=== PATIENT | male | born 1960 | race Caucasian/White ===

== ENCOUNTER 2019-07-24 16:19 | Inpatient (IN) | payer MEDICARE ==
[~2019-07-24] VITALS: Ht 167.6 cm; Wt 93.0 kg
--- NOTE | 2019-07-25 11:55 | NUR ---
RN NOTE- ON FACE TO FACE ADMISSION, PT ADMITTED AT 1155 TO GPS. PT CAME VIA AMBULANCE, ALERT ORIENTED TO PERSON PLACE TIME AND PURPOSE. VS STABLE. PT IS AMBULATORY, CALM AND DIRECTABLE. PT IS SOMEWHAT FLAT AND DEPRESSED. CURRENTLY DENIES SI AT THIS MOMENT. STATES HE'S "TIRED AND NERVOUS". PERSONAL BELONGINGS ITEMIZED AND STOWED AWAY, MD NOTIFIED OF ADMISSION, ORDERS RECEIVED AND COMPLIED WITH. SKIN ASSESSMENT COMPLETED, PHOTOGRAPHS TAKEN AND PLACED IN CHART, ID WRISTBAND PUT ON PT WRIST. PROVIDING CLEAN, CALM THERAPUETIC ENVIRONMENT. MONITORING.
[2019-07-25] MEDS ORDERED: ACETAMINOPHEN 325 MG TABLET PO PRN (13:00)
[2019-07-25] MEDS ORDERED: MAGNESIUM HYDROXIDE 30 ML UDC PO PRN (13:00)
[2019-07-25] MEDS ORDERED: BLOOD SUGAR DIAGNOSTIC 1 EACH STRIP IN ONE (13:00)
[2019-07-25] MEDS ORDERED: MAG HYDROX/AL HYDROX/SIMETH 30 ML UDC PO PRN (13:00)
[2019-07-25 13:26] VITALS: BP 122/86
[2019-07-25] MEDS ORDERED: ESCI20TA PO (13:50)
[2019-07-25] MEDS ORDERED: [UNRECOGNIZED DRUG - CODE] IM (13:50)
[2019-07-25] MEDS ORDERED: AMLO5TAB4 PO (13:50)
[2019-07-25] MEDS ORDERED: FOLI5VIA2 PO (13:50)
[2019-07-25] MEDS ORDERED: LORA-259 PO (14:07)
[2019-07-25] MEDS ORDERED: ARIP2TAB3 PO (14:08)
[2019-07-25] MEDS: LORAZEPAM 0.5 MG TABLET PO PRN ×2 (14:12→19:42)
[2019-07-25 16:00] VITALS: BP 105/63
--- NOTE | 2019-07-25 19:43 | NUR ---
para professional notes pt requested his Ativan for his anxiety. educate him the possible side effect and pt understood well. kept him warm and comfortable at all times. will continue monitoring.
[2019-07-25 20:21] VITALS: BP 126/72
--- NOTE | 2019-07-25 21:40 | NUR ---
brim pouncer notes pt in the dining room still watching tv at this time. snacks served. calmed and no suicidal ideation noted. will continue monitoring.
[2019-07-25] MEDS: TEMAZEPAM 7.5 MG CAPSULE PO PRN (22:27)
[2019-07-26] MEDS: LORAZEPAM 0.5 MG TABLET PO PRN ×4 (03:11→21:24)
[2019-07-26 07:16] LABS: ALBUMIN 2.8 g/dL (3.4-5.0); BILIRUBIN,TOTAL 0.6 mg/dL (0.2-1.0); CALCIUM, SERUM 8.7 mg/dL (8.5-10.1); CREATININE 0.7 mg/dL (0.6-1.3); POTASSIUM 3.8 mmol/L (3.5-5.1); TOTAL PROTEIN, SERUM 6.3 g/dL (6.4-8.2)
[2019-07-26 07:43] LABS: CHOLESTEROL 172 mg/dL (<200); HDL CHOLESTEROL 43 mg/dL (40-60); LDL 112 mg/dL (0-99); TRIGLYCERIDES 62 mg/dL (30-150)
[2019-07-26 08:00] VITALS: BP 107/66
[2019-07-26] MEDS ORDERED: ARIPIPRAZOLE 2 MG TABLET PO SCH (09:00)
[2019-07-26] MEDS ORDERED: ESCITALOPRAM OXALATE (10 MG) 10 MG TABLET PO SCH (09:00)
--- NOTE | 2019-07-26 11:55 | NUR ---
PATIENT C/O ANXIETY. PRN ATIVAN GIVEN.
--- NOTE | 2019-07-26 12:03 | NUR ---
CONTACTED DR ÁLVAREZ REGARDING PATIENT'S SKIN CONDITION. AWAITING CALL BACK. Addendum: 07/26/19 at 1311 by EDIE JAMA RN SAW PATIENT WITH ORDERS FOR EUCERIN FOR DRY SKIN. Addendum: 07/26/19 at 1339 by EIDE JAMA RN AWARE OF PATIENT'S LAB VALUES WITH NEW ORDERS FOR US LIVER
[2019-07-26] MEDS ORDERED: MINERAL OIL/PETROLATUM,WHITE 120 GM JAR TP PRN (13:30)
[2019-07-26 13:33] LABS: BASOPHILS % (AUTO) 0.3 % (0.0-2.0); EOSINOPHILS % (AUTO) 3.6 % (0.0-6.0); HEMATOCRIT 44 % (39-51); HEMOGLOBIN 14.4 g/dL (13.5-17.5); LYMPHOCYTES % (AUTO) 21.8 % (20.0-44.0); MEAN CORPUSCULAR HGB CONC 33 g/dl (31.0-36.0); MEAN CORPUSCULAR VOLUME 98 fL (80-96); MONOCYTES # (AUTO) 0.5 /CMM (0.1-1.30); MONOCYTES % (AUTO) 11.4 % (2.0-12.0); NEUTROPHILS % (AUTO) 62.9 % (43.0-81.0); PLATELET COUNT (AUTO) 174 /CMM (150-450); RED BLOOD CELL COUNT(AUTO) 4.49 MIL/uL (4.5-6.0); WHITE BLOOD COUNT (AUTO) 4.8 K/uL (4.3-11.0)
--- NOTE | 2019-07-26 14:56 | NUR ---
Family Contact: SW called the pts sister, Maddison ([phone]), and left a voicemail stating that the SW would like to discuss the pts initial discharge plan and treatment plan.
--- NOTE | 2019-07-26 15:09 | NUR ---
SS Group Note 07/26/19: Goal: Patient will attend group held today from 2-2:30pm in the activities room and participate and/or actively listen to peers and be respectful. Intervention: SW facilitated group session with patients regarding what they would like to see change as a result of their stay here. SW explored possible solutions and barriers for being med. compliant. SW used reflective listening, validated and normalized the patients struggle to remain sober. SW discussed individuals use substances or ETOH to cope with mental health symptoms. SW will provide Substance/ETOH resources for pt. upon discharge. Response: Patient was agreeable to participating in group session. The patient expressed that he wants to be more compliant with medication as a result of his stay here and to remain sober. Per patient, he plans to be more compliant by making a schedule for himself and participating in a sobriety program. Patient remained calm and cooperative throughout session. The patient was respectful towards his peers as they shared. Plan: Patient will be invited to attend next social worker masters group session held.
[2019-07-26 16:00] VITALS: BP 121/83
--- NOTE | 2019-07-26 16:24 | NUR ---
Initial Discharge Plan: Pt currently resides at [address] [place] [address]; ([phone]), with his father. Per pts sister, Maddison ([phone]), he may need placement. SW will work with the pt and the MD regarding appropriate discharge planning. SW will form a safe and proper discharge.
--- NOTE | 2019-07-26 16:25 | NUR ---
Family Contact: Pts sister, Maddison ([phone]), called the SW and stated that the pt may need placement because he has been living on the floor of his dads apartment and that he has been drinking a lot. SW stated that she will keep her updated on the pts discharge plan.
--- NOTE | 2019-07-26 16:29 | NUR ---
PATIENT C/O ANXIETY. PRN ATIVAN GIVEN PO
[2019-07-26] MEDS ORDERED: TRAZODONE 50 MG TABLET PO ONE (20:30)
[2019-07-26 20:56] VITALS: BP 124/59
[2019-07-26] MEDS ORDERED: risperiDONE 1 MG TABLET PO SCH (21:00)
[2019-07-26] MEDS ORDERED: DIVALPROEX SODIUM 250 MG TABLET.DR PO SCH (21:00)
[2019-07-26] MEDS: risperiDONE 1 MG TABLET PO SCH (21:19)
--- NOTE | 2019-07-26 21:50 | NUR ---
GPS-RN SPOKE WITH DR. SPANN REGARDING CLARIFICATION OF TRAZADONE ORDER. DR. SPANN ORDERED TO START TRAZADONE 100MG PO TOMORROW HS (07/27/19) AND GIVE TRAZADONE 50MG PO X ONE NOW.
[2019-07-26] MEDS ORDERED: TRAZODONE 50 MG TABLET PO SCH (22:00)
[2019-07-26] MEDS: TRAZODONE 50 MG TABLET PO SCH (22:00)
[2019-07-26] MEDS: TEMAZEPAM 7.5 MG CAPSULE PO PRN (23:11)
[2019-07-27] MEDS: LORAZEPAM 0.5 MG TABLET PO PRN ×3 (03:59→19:31)
--- NOTE | 2019-07-27 03:59 | NUR ---
gps rn notes: alex walked up to the nursing station and asked for ativan medication. ativan 1mg give orally as a prn order. will observed for efficacy of medication on patient.
[2019-07-27 08:00] VITALS: BP 100/55
[2019-07-27] MEDS: LITHIUM CARBONATE 150 MG CAPSULE PO SCH ×3 (08:34→16:26)
[2019-07-27] MEDS: risperiDONE 1 MG TABLET PO SCH ×2 (08:34→20:41)
--- NOTE | 2019-07-27 14:32 | NUR ---
Substance Abuse Intervention: SW conducted a substance abuse intervention with the pt due to the pts alcohol abuse.
[2019-07-27 16:00] VITALS: BP 101/67
[2019-07-27 20:02] VITALS: BP 128/83
[2019-07-27] MEDS: TRAZODONE 50 MG TABLET PO SCH (21:23)
[2019-07-27] MEDS: TEMAZEPAM 7.5 MG CAPSULE PO PRN (22:54)
[2019-07-28 08:00] VITALS: BP 119/74
[2019-07-28] MEDS: LITHIUM CARBONATE 150 MG CAPSULE PO SCH ×3 (08:08→16:30)
[2019-07-28] MEDS: risperiDONE 1 MG TABLET PO SCH ×2 (08:08→19:55)
[2019-07-28] MEDS: LORAZEPAM 0.5 MG TABLET PO PRN ×3 (10:16→18:59)
--- NOTE | 2019-07-28 10:17 | NUR ---
RN NOTE: PATIENT C/O FEELING ANXIOUS, ADMINISTERED PRN ATIVAN ORDERED.
--- NOTE | 2019-07-28 14:51 | NUR ---
RN NOTE: PATIENT C/O FEELING ANXIOUS, ADMINISTERED PRN ATIVAN.
[2019-07-28 16:00] VITALS: BP 121/78
--- NOTE | 2019-07-28 19:00 | NUR ---
RN NOTE: PATIENT C/O FEELING ANXIOUS. ADMINISTERED PRN ATIVAN.
[2019-07-28 20:32] VITALS: BP 125/77
[2019-07-28] MEDS: TRAZODONE 50 MG TABLET PO SCH (21:20)
[2019-07-28] MEDS: TEMAZEPAM 7.5 MG CAPSULE PO PRN (22:03)
[2019-07-29 08:00] VITALS: BP 140/77
[2019-07-29] MEDS: LITHIUM CARBONATE 150 MG CAPSULE PO SCH ×3 (08:06→16:21)
[2019-07-29] MEDS: risperiDONE 1 MG TABLET PO SCH ×2 (08:06→21:38)
[2019-07-29] MEDS: LORAZEPAM 0.5 MG TABLET PO PRN ×2 (09:34→14:12)
--- NOTE | 2019-07-29 09:35 | NUR ---
RN NOTE: PATIENT C/O FEELING ANXIOUS. ADMINISTERED PRN ATIVAN.
--- NOTE | 2019-07-29 14:13 | NUR ---
RN NOTE: PATIENT C/O FEELING ANXIOUS. ADMINISTERED PRN ATIVAN.
[2019-07-29 16:00] VITALS: BP 126/88
[2019-07-29 20:18] VITALS: BP 121/62
[2019-07-29] MEDS: TRAZODONE 50 MG TABLET PO SCH (21:37)
[2019-07-29] MEDS: TEMAZEPAM 7.5 MG CAPSULE PO PRN (23:10)
[2019-07-30 08:00] VITALS: BP 128/75
[2019-07-30] MEDS: LITHIUM CARBONATE 150 MG CAPSULE PO SCH ×3 (09:12→16:11)
[2019-07-30] MEDS: risperiDONE 1 MG TABLET PO SCH ×2 (09:12→20:57)
[2019-07-30] MEDS: LORAZEPAM 0.5 MG TABLET PO PRN ×2 (11:05→15:07)
--- NOTE | 2019-07-30 12:06 | NUR ---
Family Contact: SW called the pts sister, Maddison ([phone]), and informed her that the SW will be sending out SNF referrals for the pt because as she had mentioned the family is not ready to take the pt back due to his behaviors while he is at home. She stated that she would like to remain updated and the SW stated that she will keep her informed.
--- NOTE | 2019-07-30 12:14 | NUR ---
SNF Referral: SW faxed a referral to two senior care facilities that are listed below: [facility] with attn to Audrey to the fax number: [phone] [facility] with attn to Felice to the fax number: [phone].
--- NOTE | 2019-07-30 14:34 | NUR ---
GPS RN NOTE: PT REQUESTED THERAPY/COUNSELING. DR. SPANN NOTIFIED AND RECOMMENDED CONSULT WITH DR. HERNANDEZ. ORDER PLACED AND DR. HERNANDEZ NOTIFIED.
--- NOTE | 2019-07-30 14:40 | NUR ---
SNF Contact: Mica [phone]) from [facility] called the SW and stated that the pt is not accepted to their facility.
--- NOTE | 2019-07-30 14:42 | NUR ---
SNF Contact: Wellington ([phone]) from [facility] contacted the SW and stated that the pt is accepted to their facility.
--- NOTE | 2019-07-30 15:09 | NUR ---
gps rn note: patient c/o of anxiety. noticed picking at his nails as nervous habit. administered 1mg of ativan po prn as ordered. will continue to monitor q15 for safety and behavior
--- NOTE | 2019-07-30 15:32 | NUR ---
SS GROUP NOTE 07/30/19 Goal: Patient will attend group held today from 2-2:30pm in the activities room and participate and/or actively listen to peers and be respectful. Intervention: SW facilitated group session with patients regarding recognizing positive aspects in their life. SW explored: things, people places they adore; one thing they have worked hard to achieve; one thing thats going well right now; two subjects or pursuits youre passionate about; two people you can count on; three things they look forward to. Response: Patient was agreeable to participating in group session. The pt. presents with flat affect. The pt. shared with the group that he is thankful for his father, current sobriety, and is looking forward to getting his life in order. The pt. remained calm and cooperative throughout group and was respectful towards thei peers as they shared. Plan: Patient will be invited to attend next social work job titles group session held and be encouraged to actively participate in group.
[2019-07-30 16:00] VITALS: BP 128/85
[2019-07-30 21:07] VITALS: BP 107/60
[2019-07-30] MEDS: TRAZODONE 50 MG TABLET PO SCH (22:30)
[2019-07-31] MEDS: TEMAZEPAM 7.5 MG CAPSULE PO PRN ×2 (01:35→22:44)
--- NOTE | 2019-07-31 01:36 | NUR ---
GPS RN NOTES: PT C/O UNABLE TO GO TO SLEEP. PT STATED, "CAN I HAVE MY SLEEPING PILL?". CHECKED PT VITALS WNL BP 120/82, HEART RATE 92, RESP 18, TEMP 97.7. OFFERED RESTORIL 15MG PO PRN ORDERED. PT TOLERATED WELL. CONTINUE TO MONITOR.
[2019-07-31 01:39] VITALS: BP 120/82
[2019-07-31 07:53] VITALS: BP 109/80
[2019-07-31 08:00] VITALS: BP 115/85
[2019-07-31] MEDS: risperiDONE 1 MG TABLET PO SCH ×2 (08:03→20:20)
[2019-07-31] MEDS: LITHIUM CARBONATE 150 MG CAPSULE PO SCH ×3 (08:03→16:51)
[2019-07-31] MEDS: LORAZEPAM 0.5 MG TABLET PO PRN ×2 (09:36→18:51)
[2019-07-31 16:00] VITALS: BP 109/70
[2019-07-31 19:53] VITALS: BP 109/80
[2019-07-31 20:00] VITALS: BP 109/80
--- NOTE | 2019-07-31 20:00 | NUR ---
RN NOTES: TRANSFER PATIENT CAME TO UNIT FROM GPS, AMBULATORY. PATIENT IS ALERT, ORIENTED X 3. BREATHING EVEN AND UNLABORED. NOT IN ANY DISTRESS. PATIENT IS CALM, COOPERATIVE, PLEASANT, FLAT AFFECT, DEPRESSED MOOD, DENIES SI/HI AT THIS TIME. PATIENT HAS 1:1 SITTER AT BEDSIDE. NO COMPLAINTS OF PAIN OR ANY DISCOMFORT AT THIS TIME. WILL CONTINUE TO MONITOR Q15 MINS FOR SAFETY AND BEHAVIOR.
--- NOTE | 2019-07-31 20:00 | NUR ---
GPS RN NOTE: PATIENT AWAKE, ALERT AND ORIENTED X 3-4, CALM, COOPERATIVE, INTERACT WHEN ENGAGED, DENIES SI/HI, DENIES AH/VH, NO AGGRESSIVE BEHAVIOR NOTED, NO SOB, NO ACUTE DISTRESS, BREATHING EVEN AND UNLABORED, DENIES PAIN AND DISCOMFORT, PATIENT TRANSFERRED TO GPS OVERFLOW ROOM 315-1. REPORT GIVEN TO EVAN ZALDIVAR.
[2019-07-31] MEDS: TRAZODONE 50 MG TABLET PO SCH (21:53)
--- NOTE | 2019-08-01 06:51 | NUR ---
GPS OVERFLOW RN CLOSING NOTES PATIENT STILL RESTING IN BED, ALERT, ORIENTED X 3. BREATHING EVEN AND UNLABORED. NOT IN ANY DISTRESS. ON ROOM AIR. NO COMPLAINTS OF PAIN OR DISCOMFORT AT THIS TIME. NO ACUTE CHANGES OVERNIGHT. ALL NEEDS ATTENDED. SAFETY MEASURES IN PLACE; 1:1 SITTER AT BEDSIDE, CALL LIGHT WITHIN REACH, BED IN LOW, LOCKED POSITION. WILL ENDORSE SANTIAGO TO ONCOMING RN.
--- NOTE | 2019-08-01 07:30 | NUR ---
RN GPS NOTES PT IN BED, AWAKE, ALERT AND ORIENTED, DENIES PAIN, NOT IN DISTRESS, CALL LIGHT WITHIN REACH, NO BEHAVIOR PROBLEM NOTED AT THIS TIME, SITTER AT BEDSIDE, NEEDS ATTENDED.
[2019-08-01 08:00] VITALS: BP 124/85
[2019-08-01] MEDS: LITHIUM CARBONATE 150 MG CAPSULE PO SCH ×3 (08:31→16:23)
[2019-08-01] MEDS: risperiDONE 1 MG TABLET PO SCH ×2 (08:31→20:00)
[2019-08-01] MEDS: LORAZEPAM 0.5 MG TABLET PO PRN ×3 (08:35→21:54)
--- NOTE | 2019-08-01 13:30 | NUR ---
SNF Referral: [facility] faxed a referral to [facility] to the fax number: [phone].
--- NOTE | 2019-08-01 13:31 | NUR ---
SNF Contact: Belinda ([phone]) from [facility] called the SW and stated that the pt was accepted for Tuesday.
--- NOTE | 2019-08-01 13:35 | NUR ---
Family Contact: [employer] called the pts sister, Maddison ([phone]), and informed her that the pt will be discharged to [facility] on Tuesday and provided her with the address and the phone number.
[2019-08-01 16:00] VITALS: BP 125/75
--- NOTE | 2019-08-01 18:35 | NUR ---
RN CLOSING NOTES PT IN ROOM LAYING IN BED AT THIS TIME. PT IS FEELING FINE AND IS BEING COMPLIANT WITH THE PLAN OF CARE. NO ISSUES NOTED AT THIS TIME. PATIENT IS COOPERATIVE WITH CARE AND INTERVENTIONS.
--- NOTE | 2019-08-01 19:05 | NUR ---
GPS RN OPENING NOTES RECEIVED PATIENT IN BED WATCHING TV, ALERT, ORIENTED X 3. 1:1 SITTER AT BEDSIDE. BREATHING EVEN AND UNLABORED. NOT IN ANY DISTRESS. ON ROOM AIR. NO COMPLAINTS AT THIS TIME. SAFETY MEASURES IN PLACE; CALL LIGHT WITHIN REACH, BED IN LOW, LOCKED POSITION. WILL CONTINUE TO MONITOR ACCORDINGLY
[2019-08-01 20:00] VITALS: BP 140/82
[2019-08-01] MEDS: TRAZODONE 50 MG TABLET PO SCH (21:13)
--- NOTE | 2019-08-01 21:55 | NUR ---
RN NOTES PATIENT C/O OF FEELING ANXIOUS, REQUESTED FOR ATIVAN- GIVEN 1MG PO ORDERED.
[2019-08-01] MEDS: TEMAZEPAM 7.5 MG CAPSULE PO PRN (22:45)
--- NOTE | 2019-08-02 06:28 | NUR ---
GPS RN CLOSING NOTES PATIENT STILL SLEEPING IN BED, COMFORTABLE. BREATHING EVEN AND UNLABORED. NOT IN ANY DISTRESS. ON ROOM AIR. NO ACUTE CHANGES OVERNIGHT. ALL NEEDS ATTENDED. SAFETY MEASURES IN PLACE; 1:1 SITTER AT BEDSIDE, CALL LIGHT WITHIN REACH, BED IN LOW, LOCKED POSITION. WILL ENDORSE SANTIAGO TO ONCOMING RN.
--- NOTE | 2019-08-02 07:30 | NUR ---
RN GPS NOTES PT IN BED, SLEEPING, EASY TO AROUSE, ALERT AND ORIENTED, NO COMPLAINT AT THIS TIME, RESPIRATIONS NORMAL, CALL LIGHT WITHIN REACH, SAFETY PRECAUTIONS OBSERVED, SITTER AT BEDSIDE, KEPT WARM AND COMFORTABLE IN BED.
[2019-08-02 08:00] VITALS: BP 112/76
[2019-08-02 08:01] VITALS: BP 112/76
[2019-08-02] MEDS: LITHIUM CARBONATE 150 MG CAPSULE PO SCH ×3 (08:43→17:35)
[2019-08-02] MEDS: LORAZEPAM 0.5 MG TABLET PO PRN ×3 (11:31→20:45)
[2019-08-02] MEDS: risperiDONE 1 MG TABLET PO SCH ×2 (11:43→21:20)
--- NOTE | 2019-08-02 12:15 | NUR ---
RN GPS NOTES PT AWAKE, SITTING ON HIS CHAIR, EATING LUNCH, NO COMPLAINT OF PAIN OR ANY DISCOMFORT, COMPLIANT WITH MEDICATIONS, NEEDS ATTENDED.
[2019-08-02 16:00] VITALS: BP 133/81
--- NOTE | 2019-08-02 18:19 | NUR ---
RN MS NOTES PT IN BED, AWAKE, ALERT AND ORIENTED, WATCHING TV, NO BEHAVIOR PROBLEM NOTED, COMPLIANT WITH MEDS AND INTERVENTION, TOLERATES CURRENT DIET, PM MEDS GIVEN ORDERED, ALL NEEDS ATTENDED.
--- NOTE | 2019-08-02 19:20 | NUR ---
CHANGE OF SHIFT REPORT Patient in bed, awake. Appears calm, on his head phone listening to loud music. Denies pain, no agitation. Clinical trial study under Dr. Ceja. Instruction to use call light for assistance, verbalized understanding. Addendum: 08/02/19 at 2000 by TERE WYNN RN ERROR ENTRY ABOVE NOTES. SEE BELOW FOR CORRECTION. Patient in bed, awake. Appears calm, denies any discomfort. Patient is under GP care, maintained safety. Sitter at bedside.
[2019-08-02 20:00] VITALS: BP 119/78
--- NOTE | 2019-08-02 20:46 | NUR ---
ANXIETY Patient requested Ativan, appears anxious. Stable oxygen saturation on RA, denies SOB. PRN Ativan given, will reassess. Call light within reach, sitter at bedside.
[2019-08-02 20:56] VITALS: BP 119/78
[2019-08-02] MEDS: TRAZODONE 50 MG TABLET PO SCH (21:19)
--- NOTE | 2019-08-03 06:23 | NUR ---
END OF SHIFT REPORT Patient in bed, stable oxygen saturation on RA. On 5250 14 day hold. Patient is less depressed, no suicidal ideation, no homicidal ideation verbalized. Anxiety improved with PRN Ativan, slept well. Sitter at bedside. Plan possible discharge today to [facility].
--- NOTE | 2019-08-03 07:30 | NUR ---
gps riverboat captain: initial assessment received pt in bed awake, a/ox3. no c/o pain or any discomfort. pt for d'c today. pt aware. pt stable for discharge. denies si/hi at this time. pt remains isolative and passive, but able to verbalized needs known. sitter remains at bedside. prescriptions in chart. will continue to monitor.
[2019-08-03 08:00] VITALS: BP 123/71
[2019-08-03] MEDS: LITHIUM CARBONATE 150 MG CAPSULE PO SCH ×2 (08:00→12:32)
--- NOTE | 2019-08-03 08:40 | NUR ---
gps endless steamer tender: md visit seen by dr. aguilar at this time.
[2019-08-03] MEDS: risperiDONE 1 MG TABLET PO SCH (11:15)
--- NOTE | 2019-08-03 11:20 | NUR ---
gps pet counselor: psychosocial f/u seen by dr. johns at this time. pt is in good mood and answered all questions by md. pt stable for discharge. denies si/hi at this time. sitter remains at bedside.
[2019-08-03] MEDS: LORAZEPAM 0.5 MG TABLET PO PRN (12:32)
--- NOTE | 2019-08-03 13:00 | NUR ---
gps felt coverer: notes awaiting for ambulance to warp picker the pt. pt refused skin photos prior to discharge. no skin breakdown. pt stable for discharge. denies si/hi at this time. denies auditory/visual hallucinations at this time.
--- NOTE | 2019-08-03 14:49 | NUR ---
GPS/RN - Discharge Note Wellington Trotter is a 58 year old male, discharged to [facility] in stable condition. Reviewed discharge instructions with Liv RN at SNF ([phone]) and she verbalized full understanding. Patient compliant with medications, cooperative with treatment plans. Patient is alert and oriented x 3, ambulatory with steady gait, denies pain, not in any form of distress, afebrile. Patient denies suicidal ideation or homicidal ideation at this time. Patient refused discharge pictures to be taken of his skin breakdown, no open wounds noted. Behavior improved, psychiatric treatment plans met, medical treatment plans deferred for continual monitoring. Medications reconciled with Dr. Seth and Dr. Reed. Patient needs to follow up with Dr. Seth (Psychiatrist) and Dr. Bill (Press Operator [employer]). Patient signed his discharge paperwork. Returned all personal belongings to patient and he deny any missing items. Patient left the unit at 14:45 via ambulance. Sister Maddison ([phone]) made aware of discharge.
--- NOTE | 2019-08-06 08:52 | NUR ---
Discharge Note: Pt was discharged to [facility] ([facility]) located at [address] [place] [address]; ([phone]). Pt was transported via [facility] at 11:30AM in 27A. Pts sister, Maddison ([phone]), was informed of the discharge. Upon discharge, the RN reported that the pt denied both suicidal and homicidal ideation as well as auditory and visual hallucinations. Pt will continue to be under the care of his psychiatrist, Dr. Seth, located [address] [id number]; ([phone]) and his manufacturing management associate, Dr. Bill, located at [address] [address]; ([phone]). Pts substance abuse will continue to be addressed with his treatment plan. Addendum: 08/06/19 at 0853 by JOSIE VEGAS Pt was discharged on 08/03/19.
== END 2019-08-03 15:24 | DRG 885 ==
LOC: GPS 07-25 12:38 → GPSOV 07-31 19:56
PROVIDERS: ADMIT Psychiatry & Neurology Psychiatry; ATTEND Hospitalist
DX: F31.5 Bipolar disorder, current episode depressed, severe, with psychotic features (principal); R45.851 Suicidal ideations; F29 Unspecified psychosis not due to a substance or known physiological condition; F41.9 Anxiety disorder, unspecified; F10.10 Alcohol abuse, uncomplicated; G62.9 Polyneuropathy, unspecified; M19.90 Unspecified osteoarthritis, unspecified site; Z91.81 History of falling; R94.5 Abnormal results of liver function studies; R16.0 Hepatomegaly, not elsewhere classified
CPT/HCPCS: 36415; 76705-TC; 80053-TC; 80061-TC; 82962-TC; 85025-TC; 87081-TC